=== PATIENT | male | born 1960 | race Caucasian/White ===

== ENCOUNTER 2023-07-25 10:22 | Inpatient (IN) | payer MEDICARE, OTHER ==
[~2023-07-25] VITALS: Ht 175.3 cm; Wt 104.3 kg
[2023-07-25 11:18] LABS: BASOPHILS % 1.2 % (0.0-2.0); EOSINOPHILS % 2.3 % (0.0-5.0); HEMATOCRIT. 42.6 % (42.0-52.0); HEMOGLOBIN. 13.7 g/dL (14.0-18.0); LYMPHOCYTES % 19.5 % (20.0-50.0); MEAN CORPUSCULAR HEMOGLOBIN 28.6 pg (28.0-32.0); MEAN CORPUSCULAR HGB CONC 32.1 g/dL (31.0-37.0); MEAN CORPUSCULAR VOLUME 89.3 fL (80.0-94.0); MEAN PLATELET VOLUME 8.8 fl (7.4-10.4); MONOCYTES % 5.7 % (2.0-8.0); NEUTROPHILS % 71.3 % (40.0-76.0); PLATELET 232 x1000/uL (130-400); RED BLOOD CELL COUNT 4.77 mill/uL (4.7-6.1); RED CELL DISTRIBUTION WIDTH 13.3 % (11.6-14.6); WHITE BLOOD COUNT 6.5 x1000/uL (4.5-11.0)
[2023-07-25 11:30] LABS: PROTHROMBIN TIME 10.8 sec (9.6-11.0)
[2023-07-25 11:35] LABS: ALANINE AMINOTRANSFERASE 27 IU/L (10-49); ALBUMIN 4.5 g/dL (3.2-4.8); ASPARTATE AMINOTRANSFERASE 26 IU/L (<34); BILIRUBIN TOTAL 0.6 mg/dL (0.1-1.0); CALCIUM 9.4 mg/dL (8.7-10.4); CARBON DIOXIDE 26 mEq/L (21-32); CHLORIDE 103 mEq/L (98-107); CREATININE 1.4 mg/dL (0.6-1.3); GLUCOSE 382 mg/dL (70-105); POTASSIUM 4.4 mEq/L (3.5-5.1); PROTEIN TOTAL 7.9 g/dL (6.0-8.3); SODIUM 136 mEq/L (136-145); UREA NITROGEN BLOOD 28 mg/dL (9-23)
[2023-07-25] MEDS ORDERED: TAZOBACTAM IV ONE (14:30)
[2023-07-25] MEDS ORDERED: PIPERACILLIN IV ONE (14:30)
[2023-07-25] MEDS ORDERED: PIPERACILLIN/TAZO 3.375G/50ML 50 ML IV NR (14:30)
[2023-07-25] MEDS ORDERED: ACETAMINOPHEN 325MG TABLET PO PRN ×2 (16:15)
[2023-07-25] MEDS ORDERED: HYDROCODONE/ACETAMINOPHEN 5/325MG TABLET PO PRN (16:15)
[2023-07-25] MEDS ORDERED: DIPHENHYDRAMINE 50MG/ML VIAL IV PRN (16:15)
[2023-07-25] MEDS ORDERED: DEXTROSE 50% WATER 50ML SYRINGE IV PRN (16:15)
[2023-07-25] MEDS ORDERED: MAGNESIUM/ALUMINUM HYDROXIDE/SIMETHICONE 30ML UDC PO PRN (16:15)
[2023-07-25] MEDS ORDERED: ZOLPIDEM TARTRATE 5MG TABLET PO PRN (16:15)
[2023-07-25] MEDS ORDERED: MAGNESIUM HYDROXIDE 400MG/5ML 30ML UDC PO PRN (16:15)
[2023-07-25] MEDS ORDERED: VANCOMYCIN 1G PREMIX 200 ML IV SCH (17:30)
[2023-07-25 20:00] VITALS: BP 152/82; PULSE 73; RESP 18; TEMP 98.6
[2023-07-25] MEDS: INSULIN LISPRO 100 UNITS/ML SUBCUT SCH (21:00)
[2023-07-25] MEDS: OMEPRAZOLE 20MG CAPSULE EXTENDED RELEASE PO SCH (21:00)
[2023-07-25] MEDS: AMLODIPINE 5MG TABLET PO SCH (21:00)
[2023-07-25] MEDS: SODIUM CHLORIDE 0.9% INJ 3ML FLUSH IVF SCH (22:00)
[2023-07-25] MEDS: ENOXAPARIN 40MG/0.4ML SYR SUBCUT SCH (22:00)
[2023-07-25] MEDS: INSULIN GLARGINE 100 UNITS/ML SUBCUT SCH (22:00)
[2023-07-26] VITALS: BP 140/80; PULSE 83; RESP 18; TEMP 97.9
[2023-07-26 04:00] VITALS: BP 147/49; PULSE 85; RESP 18; TEMP 98.2
[2023-07-26] MEDS: BLOOD SUGAR DIAGNOSTIC STRIP TEST SCH ×4 (07:20→21:00)
[2023-07-26 07:34] LABS: CALCIUM 9.5 mg/dL (8.7-10.4); CARBON DIOXIDE 24 mEq/L (21-32); CHLORIDE 106 mEq/L (98-107); POTASSIUM 4.3 mEq/L (3.5-5.1); SODIUM 137 mEq/L (136-145); UREA NITROGEN BLOOD 25 mg/dL (9-23)
[2023-07-26 07:39] LABS: GLUCOSE 190 mg/dL (70-105)
[2023-07-26 08:00] VITALS: BP 161/88; PULSE 77; RESP 19; TEMP 98.9
[2023-07-26] MEDS: ENOXAPARIN 40MG/0.4ML SYR SUBCUT SCH ×2 (08:22→21:00)
[2023-07-26] MEDS: OMEPRAZOLE 20MG CAPSULE EXTENDED RELEASE PO SCH ×2 (08:23→21:00)
[2023-07-26] MEDS: AMLODIPINE 5MG TABLET PO SCH ×2 (08:23→21:00)
[2023-07-26] MEDS: INSULIN LISPRO 100 UNITS/ML SUBCUT SCH ×5 (08:28→21:00)
[2023-07-26] MEDS: LOSARTAN 25 MG TABLET PO SCH ×2 (08:32→17:30)
[2023-07-26] MEDS: DOCUSATE SODIUM 100MG CAPSULE PO SCH ×2 (08:32→17:30)
[2023-07-26 12:00] VITALS: BP 157/81; PULSE 80; RESP 20; TEMP 97.9
[2023-07-26] MEDS: ONDANSETRON HCL 4MG/2ML INJ IV PRN ×3 (13:22→22:34)
[2023-07-26] MEDS: SODIUM CHLORIDE 0.9% INJ 3ML FLUSH IVF SCH ×2 (14:00→22:00)
[2023-07-26 14:46] VITALS: BP 157/81; PULSE 90; RESP 19; TEMP 97.9
[2023-07-26] MEDS ORDERED: TETANUS AND DIPHTHERIA TOX/PF 0.5ML SYR (ADULT) IM ONE (16:00)
[2023-07-26] MEDS: FAMOTIDINE 20MG TABLET PO SCH (16:02)
[2023-07-26 20:00] VITALS: BP 154/103; PULSE 94; RESP 18; TEMP 97.1
[2023-07-26] MEDS: INSULIN GLARGINE 100 UNITS/ML SUBCUT SCH (22:00)
[2023-07-27] VITALS: BP 147/87; PULSE 110; RESP 18; TEMP 96.3
[2023-07-27 04:00] VITALS: BP 172/91; PULSE 90; RESP 18; TEMP 97.3
[2023-07-27] MEDS: ONDANSETRON HCL 4MG/2ML INJ IV PRN ×2 (04:24→10:13)
[2023-07-27] MEDS: FAMOTIDINE 20MG TABLET PO SCH (05:36)
[2023-07-27] MEDS: CLONIDINE 0.1MG TABLET PO PRN ×2 (05:43→10:19)
[2023-07-27] MEDS: BLOOD SUGAR DIAGNOSTIC STRIP TEST SCH ×2 (07:19→12:08)
[2023-07-27] MEDS: INSULIN LISPRO 100 UNITS/ML SUBCUT SCH ×2 (07:50→12:48)
[2023-07-27 08:00] VITALS: BP 170/90; PULSE 94; RESP 20; TEMP 99.8
[2023-07-27] MEDS: DOCUSATE SODIUM 100MG CAPSULE PO SCH (08:50)
[2023-07-27] MEDS: AMLODIPINE 5MG TABLET PO SCH (08:50)
[2023-07-27] MEDS: LOSARTAN 25 MG TABLET PO SCH (08:50)
[2023-07-27] MEDS: ENOXAPARIN 40MG/0.4ML SYR SUBCUT SCH (08:51)
[2023-07-27] MEDS ORDERED: FAMOTIDINE 20MG TABLET PO SCH (09:00)
[2023-07-27 10:31] LABS: CALCIUM 9.4 mg/dL (8.7-10.4); CARBON DIOXIDE 25 mEq/L (21-32); CHLORIDE 102 mEq/L (98-107); CREATININE 1.1 mg/dL (0.6-1.3); GLUCOSE 250 mg/dL (70-105); POTASSIUM 4.3 mEq/L (3.5-5.1); SODIUM 135 mEq/L (136-145); UREA NITROGEN BLOOD 28 mg/dL (9-23)
[2023-07-27 12:00] VITALS: BP 155/89; PULSE 92; RESP 20; TEMP 97.9
[2023-07-27] MEDS ORDERED: SULF1TAB48 MT (12:39)
[2023-07-27 12:49] VITALS: BP 155/89; PULSE 91; TEMP 97.6; O2SAT 98
== END 2023-07-27 15:03 | disposition home health service (06) | DRG 638 ==
LOC: ER 10:50 → 6WST 13:38 → EDBEDREQTM 13:42 → EDBEDREQ 13:42
PROVIDERS: ADMIT Internal Medicine; ATTEND Internal Medicine
DX: E11.621 Type 2 diabetes mellitus with foot ulcer (principal); M86.8X7 Other osteomyelitis, ankle and foot; I10 Essential (primary) hypertension; E11.69 Type 2 diabetes mellitus with other specified complication; E66.9 Obesity, unspecified; E78.00 Pure hypercholesterolemia, unspecified; I25.10 Atherosclerotic heart disease of native coronary artery without angina pectoris; L97.519 Non-pressure chronic ulcer of other part of right foot with unspecified severity; E11.42 Type 2 diabetes mellitus with diabetic polyneuropathy; K21.9 Gastro-esophageal reflux disease without esophagitis; F17.210 Nicotine dependence, cigarettes, uncomplicated; E11.622 Type 2 diabetes mellitus with other skin ulcer; E11.51 Type 2 diabetes mellitus with diabetic peripheral angiopathy without gangrene; Z95.1 Presence of aortocoronary bypass graft; Z95.5 Presence of coronary angioplasty implant and graft; Z68.34 Body mass index [BMI] 34.0-34.9, adult; Z79.4 Long term (current) use of insulin; I25.2 Old myocardial infarction
CPT/HCPCS: 36415; 73630; 73721; 80048; 80053; 82962; 83036; 83605; 85025; 85651; 86850; 86900; 93923; 99291; J1650; J1815; J2405; J2543